=== PATIENT | male | born 1970 | race Caucasian/White ===

== ENCOUNTER → 2020-02-11 | Outpatient (CLI) | payer OTHER | LOC: M.RAD 14:20 | PROVIDERS: ATTEND Family Medicine | DX: M25.562 Pain in left knee (principal); G89.29 Other chronic pain ==

== ENCOUNTER → 2020-03-03 | Outpatient (CLI) | payer OTHER | LOC: M.MRI 08:10 | PROVIDERS: ATTEND Orthopaedic Surgery | DX: M17.12 Unilateral primary osteoarthritis, left knee (principal); M71.20 Synovial cyst of popliteal space [Baker], unspecified knee ==

== ENCOUNTER → 2020-03-14 | Outpatient (CLI) | payer OTHER | LOC: M.LAB 08:41 | PROVIDERS: ATTEND Orthopaedic Surgery | DX: U07.1 COVID-19 (principal) ==